=== PATIENT | female | born 1940 | race Hispanic/Latino ===

== ENCOUNTER 2017-03-27 13:08 | Emergency (ER) | payer OTHER ==
[~2017-03-27] VITALS: Ht 165.1 cm; Wt 86.4 kg
[~2017-03-27 13:08] MED LIST: ADVAIR 250/501 DISK IH; DOCUSATE SODIU100 MG PO; DYAZIDE, MA1 CAPSULE PO; GABAPENTIN100 MG PO; KEPPRA250 MG PO; LANTUS 3 M100 UNITS1 SC; LORAZEPAM1 MG PO; LOSARTAN POTASS50 MG PO; METOPROLOL TAR100 MG PO; NORCO 5/3251 TABLET PO; OMEPRAZOLE20 M2 PO; PERCOCET 5/31 TABLET PO; PROAIR HFA8.5 GM IH; SIMVASTATIN40 MG PO; VITAMIN B-122500 MCG SL; XARELTO20 MG PO
[2017-03-27 14:48] LABS: CHLORIDE 106 mEq/L (99-109); SODIUM 140 mEq/L (136-147)
[2017-03-27 14:50] LABS: GLUCOSE 124 mg/dL (70-99)
[2017-03-27 14:51] LABS: ANION GAP 12 MEQ/L (2-14)
[2017-03-27 14:53] LABS: GFR ESTIMATE (CALCULATED) 57 mL/min/
[2017-03-27 14:54] LABS: UREA NITROGEN (BUN) 16 mg/dL (9-23)
[2017-03-27 15:21] LABS: HEMATOCRIT 35.7 % (36.0-46.0); MCH 23.5 PG (29.0-34.0); MCHC 30.8 G/DL (30.0-36.0); MCV 76.3 FL (83-99); RBC DIS.WIDTH-CV 14.6 % (11.8-14.6); RBC DIS.WIDTH-SD 39.4 % (39-53); RED BLOOD COUNT 4.68 M/uL (3.80-5.20); WHITE BLOOD COUNT 10.7 K/uL (4.1-10.2)
[2017-03-27] MEDS ORDERED: ZITHROMAX250 MG PO (16:06)
[2017-03-27 16:14] LABS: PLAT.SUFFICIENCY DECREASED; PLATELET CLUMPS PRESENT - PLATELET COUNTS APPEARS DECREASED; PLATELET COUNT UNABLE TO REPORT K/uL (156-360)
[2017-03-27 16:31] VITALS: BP 132/67
== END 2017-03-27 16:34 | disposition home or self-care (01) ==
LOC: EME 13:08
PROVIDERS: Nurse Practitioner Family
DX: J40 Bronchitis, not specified as acute or chronic (principal); D69.6 Thrombocytopenia, unspecified; J44.9 Chronic obstructive pulmonary disease, unspecified; I10 Essential (primary) hypertension; E78.5 Hyperlipidemia, unspecified; E11.9 Type 2 diabetes mellitus without complications; Z79.4 Long term (current) use of insulin; Z79.01 Long term (current) use of anticoagulants
CPT/HCPCS: 71020; 80048; 85027; 94640; 99281; 99284

== ENCOUNTER → 2017-12-08 | Outpatient (CLI) | payer OTHER ==
[~2017-12-08] VITALS: Ht 170.2 cm; Wt 84.8 kg
[~2017-12-08] MED LIST changes: +ADVIL,NUPRIN,M200 MG PO; +ATIVAN1 MG PO; +AZITHROMYCIN250 MG PO; +COZAAR100 MG PO; +FEOSOL325 MG PO; +MULTIPLE VITAM1 EAC1 PO; +OMEGA 3 500 SO1 EACH PO; +VENTOLIN HFA18 GM IH; +ZITHROMAX250 MG PO
== END | disposition home or self-care (01) ==
LOC: AMB 10:23
PROVIDERS: Internal Medicine Gastroenterology
PROC: 0DJDXZZ Inspection of Lower Intestinal Tract, External Approach (ICD-10-PCS; principal; 2017-12-08)
DX: K62.5 Hemorrhage of anus and rectum (principal); Z53.09 Procedure and treatment not carried out because of other contraindication; R94.31 Abnormal electrocardiogram [ECG] [EKG]
CPT/HCPCS: 82948; 93005

== ENCOUNTER 2017-12-12 11:11 | Emergency (ER) | payer OTHER ==
[~2017-12-12] VITALS: Ht 165.1 cm; Wt 81.8 kg
[~2017-12-12 11:11] MED LIST changes: -AZITHROMYCIN250 MG PO
[2017-12-12 12:05] LABS: HEMATOCRIT 28.6 % (36.0-46.0); MCH 24.3 PG (29.0-34.0); MCHC 31.5 G/DL (30.0-36.0); MCV 77.3 FL (83-99); PLATELET COUNT 171 K/uL (156-360); RBC DIS.WIDTH-CV 15.4 % (11.8-14.6); RBC DIS.WIDTH-SD 42.1 % (39-53); WHITE BLOOD COUNT 5.5 K/uL (4.1-10.2)
[2017-12-12 12:18] LABS: CHLORIDE 108 mEq/L (99-109); POTASSIUM 3.7 mEq/L (3.7-5.4); SODIUM 143 mEq/L (136-147)
[2017-12-12 12:20] LABS: GLUCOSE 122 mg/dL (70-99)
[2017-12-12 12:23] LABS: GFR ESTIMATE (CALCULATED) 57 mL/min/
[2017-12-12 12:24] LABS: UREA NITROGEN (BUN) 9 mg/dL (9-23)
[2017-12-12] MEDS ORDERED: AZITHROMYCIN250 MG PO (14:14)
[2017-12-12 14:59] VITALS: BP 150/79
== END 2017-12-12 15:01 | disposition home or self-care (01) ==
LOC: EME 11:11
PROVIDERS: Emergency Medicine
DX: K62.5 Hemorrhage of anus and rectum (principal); J40 Bronchitis, not specified as acute or chronic; D64.9 Anemia, unspecified; I69.354 Hemiplegia and hemiparesis following cerebral infarction affecting left non-dominant side; I11.0 Hypertensive heart disease with heart failure; I50.9 Heart failure, unspecified; Z79.01 Long term (current) use of anticoagulants; Z79.4 Long term (current) use of insulin
CPT/HCPCS: 71045; 80048; 85027; 93005; 99281; 99284